=== PATIENT | female | born 1985 | race Caucasian/White ===

== ENCOUNTER 2019-06-07 17:03 | Emergency (ER) | payer BC, SELFPAY ==
[2019-06-07] VITALS (93 sets, daily range): BP systolic 101–120; BP diastolic 57–83; PULSE 72–128; RESP 10–29; TEMP 36.6–37.1; O2SAT 97–100
--- NOTE | 2019-06-07 17:15 | DI.RAD_ITS ---
EXAM: <XR PORTABLE CHEST AP> CLINICAL HISTORY: <SOB, cough.> TECHNIQUE: COMPARISON: No exams were available for comparison FINDINGS: Heart is not enlarged. The lungs are clear and well expanded. IMPRESSION: No evidence of acute process.
--- NOTE | 2019-06-07 17:24 | W.ED.GENAD ---
Discharge Plan Disposition Patient Disposition: HOME Condition: Stable Discharge Details Chief Complaint: SOB Clinical Impression: Atypical chest pain, Acute hypokalemia Primary Care Provider: Darek Valle ED Provider: Kashmir Coleman Home Meds and New Rx's Prescriptions: New lorazepam 1 mg tablet 1 mg PO TID PRN (Reason: anxiety) Qty: 7 RF: 0 Continued acetazolamide 250 MG tablet 250 mg PO BID Qty: 14 RF: 0 cyclobenzaprine 10 MG tablet 10 mg PO TID PRN PRNQty: 10 RF: 0 Discharge Instructions Instructions: Hypokalemia (ED) Additional Instructions: I have ordered outpatient coronavirus/Covid19 testing for you to be obtained in our drive-through testing for which an appointment will be set up for you this week. You should continue to self quarantine until the results are known. Your potassium was slightly low today and you would benefit from increased dietary potassium through food such as bananas, strawberries, or tree nuts like almonds or cashews. Stand Alone Forms: POSITIVE COVID-19/TO BE TESTED Medical Decision Making <Andrey Mcgarry MD - Last Filed: 06/07/19 19:30> 34-year-old female who is breast-feeding. She recently moved from her home in [facility] to the [facility] to stay with family. She notes history of having influenza and subsequently pneumonia this early winter. Now with days of dry cough and burning in her chest which she describes as a shortness of breath. Patient is anxious and tachycardic, her vital signs are otherwise normal. Differential diagnosis includes viral syndrome, pneumonitis, bronchitis, must exclude PE. Patient referred for laboratory testing, chest x-ray, EKG. Chest x-ray without evidence of acute cardiopulmonary pathology. Labs reveal a white blood cell count of 5, hematocrit 37, platelets 265. Troponin is negative and d-dimer is 180. Chemistries do note slightly low potassium of 3.1 which was supplemented in the ED. Patient observed and repeat troponin will be obtained. Her pulse is corrected to 70-80. She is resting more comfortably. We will sign the case out to Dr. Coleman pending repeat troponin. Please see his note regarding final impression/disposition. She will benefit from outpatient coronavirus testing which I will order. She understands she is to be in self quarantine until these results are final. Lab Data Lab results reviewed: Yes I reviewed the patient's lab results. Labs: Laboratory Results - last 24 hr 06/07/19 06/07/19 06/07/19 17:25 17:25 17:25 WBC 5.44 RBC 4.10 Hgb 12.9 Hct 37.9 MCV 92.4 MCH 31.5 MCHC 34.0 RDW 12.8 Plt Count 265 MPV 10.5 Immature Gran % 0.0 Neutrophils % 53.2 Lymphocytes % 36.9 Monocytes % 8.8 Eosinophils % 0.9 Basophils % 0.2 Absolute Neutrophils 2.89 Absolute Lymphocytes 2.01 Absolute Monocytes 0.48 Absolute Eosinophils 0.05 Absolute Basophils 0.01 D-Dimer 180 Sodium 143 Potassium 3.1 L Chloride 106 Carbon Dioxide 24.9 Anion Gap 12.1 H BUN 10 Creatinine 0.92 Estimated GFR/1.73 m2 >= 60.00 Glucose 157 H Calcium 9.2 Magnesium 1.8 Total Bilirubin 0.2 AST 12 L ALT 21 Alkaline Phosphatase 80 Troponin I < 0.05 Total Protein 7.6 Albumin 4.1 ECG Data Attestation: I personally reviewed and interpreted this ECG (s) as follows: Interpretation: Sinus tachycardia with a rate of 110, the QRS is narrow, NE interval unremarkable, no ST segment elevation present <Kashmir Coleman MD - Last Filed: 06/07/19 22:14> pt started complaining of shortness of breath, was hyperventilating and shaking arms had clear lungs, 100% o2 sat on room air, clear lungs, HR 100, bp 130/60. Seems like panic attack will treat with lorazepam and reassess. pt feels better after ativan and second troponin and ekg unremarkable. Stable for d/c and will have covid19 test on Monday. Return precautions given Imaging Data Radiologic Study: Attestation: I personally reviewed and interpreted this imaging study as follows: Imaging: X-Ray My impression: no acute findings Lab Data Lab results reviewed: Yes I reviewed the patient's lab results. ECG Data Attestation: I personally reviewed and interpreted this ECG (s) as follows: Prior ECG tracings: available for review Interpretation: sinus rhythm, rate of 75, no acute st t wave ischemic findings HPI <Andrey Mcgarry MD - Last Filed: 06/07/19 19:30> General Mode of arrival: EMS. Date/Time Provider Initiated Documentation: 06/07/19 17:14. Limitations to Documentation: no limitations. Information obtained by: patient and EMS. History of Present Illness 34 year old F presents to the emergency department with the chief complaint of Chest pain and shortness of breath 4 days, described as moderate, Quality is described as dull and constant, and is localized to the chest. Patient reports no radiation. Patient started experiencing this day(s) and it has been constant. No relieving factors improve symptom(s), No exacerbating factors reported . Patient notes cough, shortness of breath and other (No leg pain or swelling. No travel. No known sick contacts. She did recently relocate from her home in [facility].); denies fever/chills, nausea/vomiting and syncope. Patient did receive the following treatments prior to arrival, none Related Data Home Medications Medication Instructions Recorded Confirmed acetazolamide 250 mg PO BID #14 tab 10/26/15 cyclobenzaprine 10 mg PO TID PRN PRN #10 tab 10/26/15 lorazepam 1 mg PO TID PRN #7 tab 06/07/19 Previous Rx's Medication Instructions Recorded acetazolamide 250 mg PO BID #14 tab 10/26/15 cyclobenzaprine 10 mg PO TID PRN PRN #10 tab 10/26/15 lorazepam 1 mg PO TID PRN #7 tab 06/07/19 Allergies Allergy/AdvReac Type Severity Reaction Status Date / Time No Known Allergies Allergy Unverified 06/07/19 17:16 General Stated Complaint: SOB YULI: 3 Review of Systems <Andrey Mcgarry MD - Last Filed: 06/07/19 19:30> Narrative: See HPI. 8 systems reviewed and otherwise negative. She is breast-feeding. [facility] <Andrey Mcgarry MD - Last Filed: 06/07/19 19:30> Social History Smoking/Tobacco Use Status: Never Alcohol Intake: current Alcohol Intake frequency: a few times a month Drug use: Never Substance use type: does not use Do you feel safe at home: Yes Exam <Andrey Mcgarry MD - Last Filed: 06/07/19 19:30> Narrative Exam Narrative: GEN: awake, alert, oriented 3. Pleasant, well groomed, interactive, anxious. HEAD: Normocephalic, atraumatic ENT: Mucous membranes moist, oropharynx unremarkable, External ear exam unremarkable EYES: PERRL, EOMI NECK: Full ROM, no MELISA, no menigismus CHEST/RESP: Nontender, clear to auscultation bilateral, no wheeze/rhonchi/rales CARDIOVASCULAR: Regular and tachycardic, no murmur, rub hoda. 2+ Rad pulse bilateral ABDOMEN: Soft, nontender, no mass. +Bowel sounds EXT: Full ROM, no edema, no rash Neuro: Grossly normal neurologic exam, conversant, interactive. Psych: Speech fluent, thoughts congruent, affect anxious Course <Andrey Mcgarry MD - Last Filed: 06/07/19 19:30> Vital Signs Vital signs: Vital Signs Temperature 37.1 C 06/07/19 17:07 Pulse 115 H 06/07/19 17:07 Respiratory Rate 18 06/07/19 17:07 Blood Pressure 115/65 06/07/19 17:07 Pulse Oximetry 100 06/07/19 17:07 Temperature 37.1 C 06/07/19 17:07 Temperature Source Skin 06/07/19 17:07 Pulse 115 H 06/07/19 17:07 Respiratory Rate 17 06/07/19 17:14 Respiratory Effort 06/07/19 17:14 Respiratory Depth Deep 06/07/19 17:14 Respiratory Pattern Normal 06/07/19 17:14 Blood Pressure 115/65 06/07/19 17:07 Blood Pressure Position Supine 06/07/19 17:07 Pulse Oximetry 100 06/07/19 17:07 Oxygen Delivery Method Room Air 06/07/19 17:07 Oxygen Flow Rate 0 06/07/19 17:07 Pain Level 7 06/07/19 17:07 Sign Out <Andrey Mcgarry MD - Last Filed: 06/07/19 19:30> Sign Out Data: Sign Out Comment: Obs/repeat troponin Last updated by Andrey Mcgarry MD at 06/07/19 19:31
[2019-06-07 17:33] LABS: Absolute Basophil Count 0.01 k/cumm (0.0-0.2); Absolute Eosinophil Count 0.05 k/cumm (0.0-0.7); Absolute Lymphocyte Count 2.01 k/cumm (1.2-3.4); Absolute Monocyte Count 0.48 k/cumm (0.11-0.7); Absolute Neutrophil Count 2.89 k/cumm (1.2-6.7); Basophils % 0.2; Eosinophils % 0.9; HCT 37.9 % (36.0-46.0); HGB 12.9 g/dL (12.0-15.5); Lymphocytes % 36.9; Mean Corpuscular Hemoglobin 31.5 pg (27.0-33.0); Mean Corpuscular Volume 92.4 fL (80-95); Mean Platelet Volume 10.5 fL (8.0-11.0); Monocytes % 8.8; Neutrophils % 53.2; Platelet Count 265 x1000/uL (130-400); RBC Distribution Width 12.8 % (11.7-14.6); White Blood Cell Count 5.44 k/cumm (4.4-10.8)
--- NOTE | 2019-06-07 17:48 | DI.VRAD_ITS ---
PROCEDURE INFORMATION: Exam: XR Chest, 1 View Exam date and time: 06/07/2019 17:40 Age: 34 years old Clinical indication: Cough and shortness of breath; Patient HX: SOB, cough TECHNIQUE: Imaging protocol: XR of the chest Views: 1 view. COMPARISON: No relevant prior studies available. FINDINGS: Lungs: No airspace consolidation. No significant interstitial disease for the degree of inflation. Pleural space: No significant pleural effusion. No pneumothorax. Heart/Mediastinum: No cardiomegaly. Bones/joints: No acute fracture. IMPRESSION: No acute cardiopulmonary pathology. Dictated and Authenticated by: Marielos Rosa MD. Ordering:SHARLA Balderas MD
[2019-06-07 17:49] LABS: ALT 21 U/L (14-59); AST 12 U/L (15-37); Albumin 4.1 g/dL (3.4-5.0); Alkaline Phosphatase 80 U/L (46-116); Anion Gap 12.1 mmol/L (3-11); BUN 10 mg/dL (7-18); Bilirubin, Total 0.2 mg/dL (0.2-1.0); CO2 24.9 mmol/L (21.0-32.0); CREATININE 0.92 mg/dL (0.55-1.02); Calcium 9.2 mg/dL (8.5-10.1); Chloride 106 mmol/L (98-107); Glucose 157 mg/dL (74-106); Magnesium 1.8 mg/dL (1.8-2.4); Potassium 3.1 mmol/L (3.5-5.1); Sodium 143 mmol/L (136-145); Total Protein 7.6 g/dL (6.4-8.2)
[2019-06-07 17:54] LABS: Troponin I < 0.05 ng/Ml (<0.06)
[2019-06-07 18:02] LABS: D-Dimer 180 ng/mlFEU (<500)
[2019-06-07] MEDS: POTASSIUM CHLORIDE 20 MEQ/100 ML BAG 50 MEQ IVPB (18:17)
[2019-06-07] MEDS: Ketorolac 15 MG/ML VIAL IVP (18:21)
[2019-06-07] MEDS: Potassium Chloride 20 MEQ TABCR PO (19:41)
[2019-06-07] MEDS: LORazepam 1 MG TAB PO (21:41)
--- NOTE | 2019-06-07 21:41 | NUR.NOTE ---
Nursing Note: Pt c/o sudden onset of SOB, lightheadedness, and tingling hands. RR 33 sat 100% HR 125. notified. Pt medicated with Ativan.
[2019-06-07 21:55] LABS: Troponin I < 0.05 ng/Ml (<0.06)
== END 2019-06-07 22:20 | disposition home or self-care (01) ==
PROVIDERS: Emergency Medicine; Emergency Provider Emergency Medicine; PCP Family Medicine
DX: R07.89 Other chest pain (principal); E87.6 Hypokalemia; R06.02 Shortness of breath; F41.0 Panic disorder [episodic paroxysmal anxiety]
CPT/HCPCS: 36415; 80053; 93005; 96365; 96375; 99285; U0003; 71045; 83735; 84484; 85025; 85379; 93010; 99284; J1885; J3480

== ENCOUNTER 2019-06-10 08:21 | Outpatient (CLI) | payer BC, SELFPAY ==
[2019-06-11 17:45] LABS: SARS-CoV-2 RNA Undetected (Undetected); SARS-CoV-2 Specimen Source Nasopharynx
== END 2019-06-10 08:41 ==
PROVIDERS: PCP Family Medicine; Visit Provider Emergency Medicine
DX: Z20.828 Contact with and (suspected) exposure to other viral communicable diseases (principal)
CPT/HCPCS: U0003